=== PATIENT | female | born 2005 | race Caucasian/White ===

== ENCOUNTER 2025-06-27 01:37 | Emergency (ER) | payer SELFPAY ==
[2025-06-27 01:38] VITALS: BP 128/72
[2025-06-27 02:13] VITALS: BMI 22.1
[2025-06-27 03:01] LABS: Urine Character Slightly Cloudy (Clear)
[2025-06-27 03:03] VITALS: BP 114/69
[2025-06-27 03:05] LABS: HCG, Serum Qualitative Screen Negative
[2025-06-27 03:10] LABS: ALT (SGPT) 21 U/L (0-35); AST (SGOT) 22 U/L (14-36); Albumin 5.2 g/dl (3.5-5.0); Alkaline Phosphatase 45 U/L (38-126); Blood Urea Nitrogen 14 mg/dl (7-17); Calcium 9.6 mg/dl (8.4-10.2); Carbon Dioxide 22 mmol/L (22-30); Chloride 104 mmol/L (98-107); Estimated Creatinine Clearance > 125 ml/min; Glucose 77 mg/dl (70-99); Potassium 3.5 mmol/L (3.5-5.1); Sodium 139 mmol/L (135-145); Total Protein 8.7 g/dl (6.3-8.2); eGFR > 60.00
[2025-06-27 03:14] LABS: Urine Squamous Cell 0-2 /LPF (Few)
[2025-06-27 03:15] LABS: Urine White Cell 90-100 /HPF (0-5)
[2025-06-27 04:20] LABS: Hematocrit 33.6 % (37.0-47.0); Hemoglobin 11.8 g/dL (12.0-16.0); Mean Corp Hgb Conc. 35.1 g/dL (33.0-37.0); Mean Corpuscular Volume 85.9 fL (81.0-99.0); Nucleated Red Blood Cells % 0 %; Platelet Count 142 10^3/uL (130-400); Red Cell Dist. Width 12.3 % (11.5-14.5)
--- NOTE | 2025-06-27 05:10 | ED.GENMED ---
History of Present Illness
General
Chief Complaint: Urinary Symptoms
Source: patient
Exam Limitations: none
Time Seen by Provider: 06/27/25 04:09
Nursing documentation reviewed up to this point in time: agreed with
History of Present Illness
History of Present Illness:
Patient presents to ED secondary to 3-day history of persistent urinary frequency, along with lower back pain over the past 24 hours. Denies fever or chills. denies nausea or vomiting. Denies trauma. Denies difficulty urination. Patient states
that she has had similar symptoms in the past, but always resolved on its own.
Past History
Past History
ED Past Medical History: None
ED Past Surgical History: None
Social History
Tobacco: Non-smoker
Alcohol: None
Personal: Single
Living: with family
Employment: Employed
Review of Systems
Review of Systems
Allergies reviewed?: Yes
All Other Systems: ROS reviewed and negative except as documented in HPI and ROS
Constitutional: Reports no symptoms
ABD/GI: Reports no symptoms; Denies abdominal pain, nausea, vomiting or diarrhea
: Reports frequency; Denies dysuria, incontinence or difficulty voiding
Musculoskeletal: Reports no symptoms
Skin: Reports no symptoms
Neurological: Reports no symptoms
Phy Exam
Physical Exam
Physical Exam:
Physical Exam
General: no apparent distress, not acutely ill. afebrile
Head: nc/at. eomi
Neck: supple. normal range of motion
Abdomen: normal bowel sounds. not tender. no cva tenderness
Neuro: alert and oriented x 3. no focal neurological deficits
Skin: no rash
Psychiatric: well kept. interactive and cooperative
Extremities: no edema. no calf tenderness.
Sepsis
Sepsis Screening
Sepsis Assessment: Sepsis Ruled Out
Sepsis Screen
Sepsis Screen: Sepsis Ruled Out
Date: 06/29/25
Time: 11:35
Course
Orders/Labs/Results
Orders:
Orders
06/27/25 02:14
Test Result ONCE
06/27/25 02:31
Comprehensive Metabolic Panel Urgent
HCG, Serum Qualitative Screen Urgent
Urinalysis Reflex To Culture Urgent
Date Specimen was Collected: 06/27/25
Time Specimen was Collected: 02:14
Urine Microscopic Reflex Cult Urgent
Urine Culture Urgent
CLAUDIA Source: U
Specimen Description:
Date Specimen was Collected: 06/27/25
Time Specimen was Collected: 02:14
06/27/25 04:13
Complete Blood Count/With Diff Urgent
Comment: REDRAW
06/27/25 05:09
Sulfamethox./Trimethoprim Ds [Bactrim Ds 800 mg/160 mg] 1 tablet PO NOW STA
Abnormal Lab Results
06/27/25 06/27/25
02:31 04:13
WBC 11.0 H 10^3/uL
(4.8-10.8)
RBC 3.91 L 10^6/uL
(4.20-5.40)
Hgb 11.8 L g/dL
(12.0-16.0)
Hct 33.6 L %
(37.0-47.0)
Absolute Neuts (auto) 8.5 H 10^3/uL
(1.4-6.5)
Absolute Monos (auto) 0.7 H 10^3/uL
(0.1-0.6)
Neutrophils % 77.5 H %
(42.2-75.2)
Lymphocytes % 15.4 L %
(20.5-51.1)
Total Protein 8.7 H g/dl
(6.3-8.2)
Albumin 5.2 H g/dl
(3.5-5.0)
Ur Occult Blood Reflex 4+ A
(Negative)
Leukocyte Esterase Rfl 3+ A
(Negative)
Urine RBC 7-10 A /HPF
(0-2)
Urine WBC (Reflex) 90-100 A /HPF
(0-5)
Urine Bacteria (Reflex) Few A
(Negative)
Urine Yeast Few A
(Negative)
Urine Albumin (Reflex) 3+ A
(Neg - Trace)
06/27/25 04:13
06/27/25 02:31
Vital Signs
Initial and Last Documented VS:
Initial Vital Signs
Temp Pulse Resp BP Pulse Ox
98.6 F 84 18 128/72 100
06/27/25 01:38 06/27/25 01:38 06/27/25 01:38 06/27/25 01:38 06/27/25 01:38
Last Documented Vital Signs
Temp Pulse Resp BP Pulse Ox
98.6 F 82 16 99/54 100
06/27/25 01:38 06/27/25 05:24 06/27/25 05:24 06/27/25 05:24 06/27/25 05:24
MDM/Problems Addressed
MDM/Problems Addressed:
History and exam consistent with likely UTI, less likely pyelonephritis, doubtful renal colic. As such, will start empiric abx with return precautions provided, i.e. fever/worsening pain/vomiting/inability to urinate. Advised pcp f/u
*Pulse Oximetry
SaO2: 100
Oxygen Mode of Delivery: Room air
Patient hypoxic: no
*Critical Care Note
Total Time (30-74mins, 75-104mins- exclusive of procedures): Not Applicable
ED Attending Note
-
Portions of this chart may have been created with voice recognition software.� Occasional wrong word or��sound alike� substitutions may have occurred due to the inherent limitations of voice recognition software.
Discharge Plan
Departure
Patient Disposition: Home (Routine Discharge)
Date of Disposition: 06/27/25
Time of Disposition: 05:10
Patient with high blood pressure during this ER visit?: Yes
Discharge Problem:
UTI (urinary tract infection)
Instructions: Urinary Tract Infection, Adult (DC)
Prescriptions:
New
sulfamethoxazole-trimethoprim [Bactrim DS] 800-160 mg tablet
1 tab PO Q12H Qty: 9 0RF
Referrals:
[facility] [Outside]
NONE,* [Family Provider, Internal Medicine]
Activity Restrictions/Additional Instructions:
As discussed, please follow-up with referred medical clinic for reevaluation. Please return to ED with worsening symptoms, i.e. fever/worsening pain/inability to urinate
Interventions
Interventions:
*Risk Screen - Suicide Last Done: 06/27/25 01:38
*General Assessment Last Done: 06/27/25 03:00
*Neglect/Abuse Screening Last Done: 06/27/25 01:38
*ED- Fall Risk Assessment Last Done: 06/27/25 03:00
*ED COVID-19 Vaccine History Last Done: 06/27/25 03:00
*Nursing Disposition Last Done: 06/27/25 05:24
ED-Female Genitourinary Assessment Last Done: 06/27/25 02:57
Discharge Date and Time
Discharge Date/Time: 06/27/25 05:25
Print Language: DIVEHI
[2025-06-27] MEDS: BACTRIM DS 800 MG/160 MG 1 TABLET PO (05:17)
[2025-06-27 05:24] VITALS: BP 99/54
== END 2025-06-27 05:25 | disposition home or self-care (01) ==
LOC: EMR 01:37
PROVIDERS: EMERGENCY PHYSICIAN Emergency Medicine
DX: N39.0 Urinary tract infection, site not specified (principal); M54.50 Low back pain, unspecified
CPT/HCPCS: 99283; 80053; 81003; 81015; 84703; 85025; 87086; 87088